=== PATIENT | female | born 1985 | race African-American/Black ===

== ENCOUNTER 2019-02-09 18:10 | Emergency (ER) | payer MEDICAID ==
[~2019-02-09] VITALS: Ht 160 cm; Wt 91.0 kg
[2019-02-09 21:17] LABS: CLARITY URINE CLEAR (CLEAR); COLOR URINE YELLOW (YELLOW); KETONES URINE NEGATIVE (NEGATIVE); LEUKOCYTE ESTERASE URINE TRACE (NEGATIVE); NITRITE URINE NEGATIVE (NEGATIVE); OCCULT BLOOD URINE NEGATIVE (NEGATIVE); PROTEIN URINE NEGATIVE (NEGATIVE); SPECIFIC GRAVITY URINE 1.014 (1.005-1.030)
[2019-02-09 21:59] VITALS: BP 129/79
== END 2019-02-09 22:52 | disposition home or self-care (01) ==
LOC: ER 18:10
DX: O24.911 Unspecified diabetes mellitus in pregnancy, first trimester (principal); O99.321 Drug use complicating pregnancy, first trimester; F12.90 Cannabis use, unspecified, uncomplicated; O99.331 Smoking (tobacco) complicating pregnancy, first trimester; Z3A.00 Weeks of gestation of pregnancy not specified; Z88.0 Allergy status to penicillin
CPT/HCPCS: 36415; 81003; 81025; 84702; 99283